=== PATIENT | female | born 1955 | race Caucasian/White ===

== ENCOUNTER 2016-06-03 15:04 | Emergency (ER) | payer OTHER ==
[~2016-06-03] VITALS: Ht 147.3 cm; Wt 92.1 kg
[2016-06-03] MEDS ORDERED: PERCOCET 5/31 TABLET PO (16:32)
[2016-06-03 18:00] VITALS: BP 121/83
== END 2016-06-03 18:15 | disposition home or self-care (01) ==
LOC: EME 15:04
DX: S82.101A Unspecified fracture of upper end of right tibia, initial encounter for closed fracture (principal); S83.91XA Sprain of unspecified site of right knee, initial encounter; W18.39XA Other fall on same level, initial encounter; Y93.89 Activity, other specified
CPT/HCPCS: 73564; 99281; 99284